=== PATIENT | male | born 1955 | race Caucasian/White ===

== ENCOUNTER 2019-11-22 11:38 | Emergency (ER) | payer MEDICARE, MEDICAID, SELFPAY ==
[2019-11-22] VITALS (8 sets, daily range): BP systolic 124–135; BP diastolic 60–75; PULSE 79–111; RESP 18–25; TEMP 36.9–38.4; O2SAT 95–98; BMI 28.5
--- NOTE | 2019-11-22 11:59 | XR_ITS ---
EXAMINATION: XR CHEST CLINICAL INFORMATION: Cough COMPARISON: None TECHNIQUE: Frontal view of the chest was obtained. FINDINGS: The cardiac and mediastinal contours are normal. The lung volumes are low. There is atelectasis or small infiltrate at the left lung base. The right lung is clear. There is no pleural effusion or pneumothorax. There may be trauma to the left anterior fifth rib, probably old. Bony structures are otherwise unremarkable. IMPRESSION: Low lung volumes. Atelectasis or small infiltrate at the left lung base.
[2019-11-22 12:09] LABS: MANUAL DIFF FLAG NO
[2019-11-22 12:11] LABS: Basophils Percent Auto 0.2 % (0-2); Eosinophils Absolute Auto 0.2 X10*3/uL (0.0-0.4); Eosinophils Percent Auto 1.2 % (0-4); Hematocrit 29.7 % (42-52); Hemoglobin 9.6 g/dl (14.0-18.0); Imm Gran Abs Auto 0.05 X10*3/uL (0.00-0.03); Imm Gran Pct Auto 0.4 % (0.0-0.4); Lymphocytes Percent Auto 15.1 % (20-40); Mean Corpuscular HGB Conc 32.3 g/dl (31.0-36.0); Mean Corpuscular Hemoglobin 27.5 pg (27.0-33.0); Mean Corpuscular Volume 85.1 fL (80-98); Mean Platelet Volume 10.8 fL (9.4-12.4); Monocytes Absolute Auto 0.8 X10*3/uL (0.1-1.2); Monocytes Percent Auto 5.9 % (2-11); Neutrophils Absolute Auto 10.1 X10*3/uL (2.0-8.3); Neutrophils Percent Auto 77.2 % (45-73); Platelet Count 187 X10*3/uL (160-400); Red Blood Count 3.49 X10*6/uL (4.60-5.80); Red Cell Distribution Width 14.8 % (11.0-16.0); White Blood Count 13.1 X10*3/uL (4.8-10.8)
[2019-11-22] MEDS: 0.9 % Sodium Chloride 3,000 ML 3000 ML IVCONT (12:13)
[2019-11-22] MEDS: cefTRIAXone sodium 1 GM in 0.9 % Sodium Chloride 100 ML IV (12:13)
[2019-11-22] MEDS: Ibuprofen 600 MG TABLET PO (12:16)
[2019-11-22 12:23] LABS: INTERNATIONAL NORM RATIO 1.2 (0.9-1.1); Prothrombin Time 14.8 SEC (10.8-13.0)
[2019-11-22 12:25] LABS: Partial Thromboplastin Time 35.8 SEC (24.1-38.0)
--- NOTE | 2019-11-22 12:41 | ED.URI ---
HPI - URI/Sore Throat General Chief Complaint: Fever Stated Complaint: FEVER X 2DAYS Time Seen by Provider: 11/22/19 11:56 Source: patient and family Mode of arrival: wheelchair Limitations: altered mental status ( mild confusion, delirium) History of Present Illness HPI Narrative: patient's history of COVID pneumonia in 07/03 with severe back pain and myopathy and neuropathy unable to ambulate for last 4 months had Tavarez catheter placed last week for urinary retention which he had before also been congested and coughing for last 4 5 days and since yesterday noticed fever temperature increased to 101.4 prior to arrival. Patient denies any abdominal pain no nausea no vomiting MD elicited complaint: fever and cough Pertinent past history: pneumonia Onset (ago): day(s) (2) Severity: moderate Description of mucous: yellow (pt swallows) Exacerbating factors: nothing Relieving factors: nothing Associated symptoms: fever and cough Treatments prior to arrival: acetaminophen Related Data Home Medications Medication Instructions Recorded Confirmed cetirizine [Zyrtec] 10 mg PO DAILY 11/22/19 11/22/19 cholecalciferol (vitamin D3) 50 mcg PO DAILY 11/22/19 11/22/19 [Vitamin D3] clomipramine 50 mg PO DAILY 11/22/19 11/22/19 clomipramine 100 mg PO BEDTIME 11/22/19 11/22/19 dicyclomine 10 mg PO BID 11/22/19 11/22/19 fluvoxamine 200 mg PO QAM 11/22/19 11/22/19 folic acid 1 mg PO DAILY 11/22/19 11/22/19 pantoprazole 40 mg PO DAILY 11/22/19 11/22/19 risperidone 1 mg PO DAILY 11/22/19 11/22/19 risperidone 2 mg PO BEDTIME 11/22/19 11/22/19 Previous Rx's Medication Instructions Recorded cefpodoxime 200 mg PO BID #20 tab 11/22/19 Allergies Allergy/AdvReac Type Severity Reaction Status Date / Time doxycycline Allergy Intermediate rebecca Verified 11/22/19 12:34 morphine Allergy Intermediate Hives Verified 11/22/19 12:34 Latex, Natural Rubber Allergy Mild Rash Verified 11/22/19 12:34 Review of Systems Review of Systems: REVIEW OF SYSTEMS: Pertinent positives and negatives are stated above in the history. GEN: no fevers, chills, fatigue HEENT: no nasal congestion, sore throat, ear pain NEURO: no headache, dizziness, focal weakness PULM: no shortness of breath CV: no chest pain, palpitations, LE edema ABD: no abdominal pain, nausea, vomiting, diarrhea : no dysuria, urgency, frequency SKIN: no rash ROS otherwise negative x 10 PMFSH Past Medical History Medical History HTN (hypertension) OCD (obsessive compulsive disorder) Social History Social History Smoked in Last 30 Days: No Use of substances other than those prescribed or required for medical reasons: No Advance Directives: No Advance Directives Information Provided: Yes Physical Exam Vital Signs and I&O and Narrative: Vital Signs and I&O: Vital Signs Temp 99.2 F 11/22/19 14:35 Pulse 79 11/22/19 14:15 Resp 20 11/22/19 13:59 BP 128/60 11/22/19 14:15 Pulse Ox 95 11/22/19 14:15 Intake & Output 11/21/19 11/22/19 11/22/19 18:59 06:59 18:59 Intake Total 3200 / 3200 Balance 3200 / 3200 Weight 95.254 kg Intake: Intake, IV Amoun t 3200 / 3200 Potassium Chlo ride/H20 10 meq 100 / 100 In 100 ml @ 10 0 mls/hr IV ONCE ONE Rx#:[id number] cefTRIAXone so dium 1 gm In 0.9 100 / 100 % Sodium Chlor dennis 100 ml @ 200 mls/hr IV ONCE ONE Rx#: [id number] 0.9 % Sodium C hloride 3,000 ml 3000 / 3000 @ 3000 mls/hr IVCONT .Q1H ONE Rx#:[id number] Body Mass Index 28.5 VITAL SIGNS: Reviewed. GENERAL: Well developed, well nourished, in no acute distress. HEAD: Normocephalic/atraumatic, Posterior oropharynx was without edema, erythema or exudate. EYES: PERRLA, EOMI , no nystagmus/pallor/icterus noted EARS: Ext canals without abnormality, TMs non-bulging and non-erythematous NOSE: Nares patent bilateral OROPHARYNX: no oral lesions noted, posterior pharynx clear and non-erythematous without noted tonsillar enlargement/erythema/exudates NECK: Supple, no adenopathy LUNGS: good air entry bilateral, rales present bilateral basilar area no wheezing or rhonchi VASCULAR: Regular rate and rhythm without noted murmurs, no JVD or lower extremity edema. ABDOMEN: Soft, non-tender, non-distended with bowel sounds. No rigidity. No guarding. No palpable masses or hernias noted MUSCULOSKELETAL: No tenderness, deformities, or effusions noted on gross inspection. EXTREMITIES: No cyanosis, clubbing or edema. SKIN: Inspection of the skin reveals slight erythema at the bony prominence of both feet no open wound NEUROLOGIC: Alert and oriented x 3. no focal weakness diffuse muscular weakness bilateral legs decreased sensation both legs Course Course Course Narrative: patient with UTI and bronchitis received IV Rocephin in the ER does not want to stay in the hospital agreed has a good help at home will discharge him on Vantin. Patient got the COVID testing done in the ER MDM - URI/Sore Throat Lab Data Result diagrams: 11/22/19 12:02 11/22/19 12:02 Labs: Lab Results 11/22/19 11/22/19 11/22/19 Range/Units 12:02 12:02 12:02 WBC 13.1 H (4.8-10.8) X10*3/uL RBC 3.49 L (4.60-5.80) X10*6/uL Hgb 9.6 L (14.0-18.0) g/dl Hct 29.7 L (42-52) % MCV 85.1 (80-98) fL MCH 27.5 (27.0-33.0) pg MCHC 32.3 (31.0-36.0) g/dl RDW 14.8 (11.0-16.0) % Plt Count 187 (160-400) X10*3/uL MPV 10.8 (9.4-12.4) fL Immature Gran % (Auto) 0.4 (0.0-0.4) % Neut % (Auto) 77.2 H (45-73) % Lymph % (Auto) 15.1 L (20-40) % Humphreys % (Auto) 5.9 (2-11) % Eos % (Auto) 1.2 (0-4) % Baso % (Auto) 0.2 (0-2) % Lymph # (Auto) 2.0 (1.2-4.9) X10*3/uL Humphreys # (Auto) 0.8 (0.1-1.2) X10*3/uL Eos # (Auto) 0.2 (0.0-0.4) X10*3/uL Baso # (Auto) 0.0 (0.0-0.2) X10*3/uL Abs Immat Gran (auto) 0.05 H (0.00-0.03) X10*3/uL Absolute Neuts (auto) 10.1 H (2.0-8.3) X10*3/uL Absolute Nucleated RBC 0.000 (0.0-0.012) X10*3/uL Nucleated RBC % (auto) 0.0 (0.0-0.2) /100WBC PT 14.8 H (10.8-13.0) SEC INR 1.2 H (0.9-1.1) APTT 35.8 (24.1-38.0) SEC Sodium 138 (135-145) mmol/L Potassium 3.0 L (3.3-5.1) mmol/l Chloride 101 (96-108) mmol/L Carbon Dioxide 26 (22-29) mmol/L Anion Gap 14 (12-20) BUN 12 (9-16) mg/dL Creatinine 0.99 (0.5-1.4) mg/dL Estim Creat Clear Calc 91.4 Estimated GFR > 60 Random Glucose 130 H (60-115) mg/dL Lactic Acid (0.5-2.0) mmol/L Calcium 8.6 (8.4-10.2) mg/dL Total Bilirubin 0.5 (0.0-1.0) mg/dL Direct Bilirubin 0.2 (0.0-0.5) mg/dL AST 9 (5-37) U/L ALT < 6 (0-40) U/L Alkaline Phosphatase 77 (39-117) U/L Total Protein 6.6 (6.5-8.0) g/dL Albumin 3.8 (3.5-5.0) g/dL Urine Color Urine Appearance Urine pH (5.0-8.0) Ur Specific [place] (1.005-1.025) Urine Protein (NEG-TRACE) MG/DL Urine Glucose (UA) (NEG) MG/DL Urine Ketones (NEG) MG/DL Urine Blood (NEG) Urine Nitrite (NEG) Ur Leukocyte Esterase (NEG) Urine RBC (0) /HPF Urine WBC (0-4) /HPF Ur Squamous Epith Cells /LPF Ur Renal Epithelial Cell /LPF Urine Bacteria /LPF Coronavirus (PCR) 11/22/19 11/22/19 11/22/19 Range/Units 12:02 14:22 15:30 WBC (4.8-10.8) X10*3/uL RBC (4.60-5.80) X10*6/uL Hgb (14.0-18.0) g/dl Hct (42-52) % MCV (80-98) fL MCH (27.0-33.0) pg MCHC (31.0-36.0) g/dl RDW (11.0-16.0) % Plt Count (160-400) X10*3/uL MPV (9.4-12.4) fL Immature Gran % (Auto) (0.0-0.4) % Neut % (Auto) (45-73) % Lymph % (Auto) (20-40) % Humphreys % (Auto) (2-11) % Eos % (Auto) (0-4) % Baso % (Auto) (0-2) % Lymph # (Auto) (1.2-4.9) X10*3/uL Humphreys # (Auto) (0.1-1.2) X10*3/uL Eos # (Auto) (0.0-0.4) X10*3/uL Baso # (Auto) (0.0-0.2) X10*3/uL Abs Immat Gran (auto) (0.00-0.03) X10*3/uL Absolute Neuts (auto) (2.0-8.3) X10*3/uL Absolute Nucleated RBC (0.0-0.012) X10*3/uL Nucleated RBC % (auto) (0.0-0.2) /100WBC PT (10.8-13.0) SEC INR (0.9-1.1) APTT (24.1-38.0) SEC Sodium (135-145) mmol/L Potassium (3.3-5.1) mmol/l Chloride (96-108) mmol/L Carbon Dioxide (22-29) mmol/L Anion Gap (12-20) BUN (9-16) mg/dL Creatinine (0.5-1.4) mg/dL Estim Creat Clear Calc Estimated GFR Random Glucose (60-115) mg/dL Lactic Acid 1.7 (0.5-2.0) mmol/L Calcium (8.4-10.2) mg/dL Total Bilirubin (0.0-1.0) mg/dL Direct Bilirubin (0.0-0.5) mg/dL AST (5-37) U/L ALT (0-40) U/L Alkaline Phosphatase (39-117) U/L Total Protein (6.5-8.0) g/dL Albumin (3.5-5.0) g/dL Urine Color YELLOW Urine Appearance HAZY Urine pH 6.5 (5.0-8.0) Ur Specific [place] <= 1.005 (1.005-1.025) Urine Protein NEG (NEG-TRACE) MG/DL Urine Glucose (UA) NEG (NEG) MG/DL Urine Ketones NEG (NEG) MG/DL Urine Blood 1+ H (NEG) Urine Nitrite NEG (NEG) Ur Leukocyte Esterase 3+ H (NEG) Urine RBC 1-4 (0) /HPF Urine WBC 76-150 H (0-4) /HPF Ur Squamous Epith Cells 1+ /LPF Ur Renal Epithelial Cell 1+ /LPF Urine Bacteria TRACE /LPF Coronavirus (PCR) Cancelled Discharge Plan Discharge Clinical Impression: Bronchitis, Acute UTI (urinary tract infection) Patient Disposition: Home, Self-Care Instructions: Acute Bronchitis (ED), Catheter-associated Urinary Tract Infection (ED) Additional Instructions: take antibiotics as prescribed, report to the ER/ PCP if fever continues or not feeling better. we did COVID testing , result is pending someone will call you with the results you have slightly low potassium have extra banana / orange juice daily Prescriptions: New cefpodoxime 200 mg tablet 200 mg PO BID Qty: 20 RF: 0 No Action fluvoxamine 100 mg Tablet 200 mg PO QAM RF: 0 risperidone 2 mg Tablet 2 mg PO BEDTIME RF: 0 pantoprazole 40 mg Tablet,Delayed Release (Dr/Ec) 40 mg PO DAILY RF: 0 folic acid 1 mg Tablet 1 mg PO DAILY RF: 0 clomipramine 50 mg Capsule 50 mg PO DAILY RF: 0 clomipramine 50 mg Capsule 100 mg PO BEDTIME RF: 0 risperidone 1 mg Tablet 1 mg PO DAILY RF: 0 dicyclomine 10 mg Capsule 10 mg PO BID RF: 0 cholecalciferol (vitamin D3) [Vitamin D3] 50 mcg (2,000 unit) Tablet 50 mcg PO DAILY RF: 0 Zyrtec 10 mg Capsule 10 mg PO DAILY RF: 0 Interventions: ED Discharge Assessment Last Done: 11/22/19 16:37
[2019-11-22 12:43] LABS: Lactic Acid 1.7 mmol/L (0.5-2.0)
[2019-11-22 12:50] LABS: Alanine Aminotransferase < 6 U/L (0-40); Albumin Level 3.8 g/dL (3.5-5.0); Alkaline Phosphatase 77 U/L (39-117); Anion Gap 14 (12-20); Aspartate Amino Transferase 9 U/L (5-37); Bilirubin Direct 0.2 mg/dL (0.0-0.5); Bilirubin Total 0.5 mg/dL (0.0-1.0); Blood Urea Nitrogen 12 mg/dL (9-16); Calcium 8.6 mg/dL (8.4-10.2); Carbon Dioxide 26 mmol/L (22-29); Chloride 101 mmol/L (96-108); Creatinine Clr Calc Pharmacy 91.4; Estimated Glomerular Filt Rate > 60; Glucose Random 130 mg/dL (60-115); Sodium 138 mmol/L (135-145); Total Protein 6.6 g/dL (6.5-8.0)
[2019-11-22 14:35] LABS: Glucose Urine UA NEG (NEG); Leukocyte Esterase Urine 3+ (NEG); Nitrite Urine NEG (NEG); PH 6.5 (5.0-8.0); Specific Gravity - Urine <= 1.005 (1.005-1.025); Urine Blood 1+ (NEG); Urine Ketones NEG (NEG); Urine Protein NEG (NEG-TRACE)
[2019-11-22 14:36] LABS: Appearance Urine HAZY; Color Urine YELLOW
[2019-11-22 14:43] LABS: Bacteria Urine TRACE /LPF; Squamous Epithelial Cell Urine 1+ /LPF
[2019-11-22 14:44] LABS: Renal Epithelial Cells Urine 1+ /LPF
[2019-11-22] MEDS: Potassium Chloride/H20 10 MEQ/100 ML PIGGYBACK 100 MEQ IV (15:28)
[2019-11-22] MEDS: Potassium Bicarbonate/Cit AC 25 MEQ TABLET.EFF PO (15:55)
== END 2019-11-22 17:22 | disposition home or self-care (01) ==
PROVIDERS: Emergency Provider Internal Medicine; PCP Internal Medicine
DX: J20.9 Acute bronchitis, unspecified (principal); Z20.828 Contact with and (suspected) exposure to other viral communicable diseases; T83.518A Infection and inflammatory reaction due to other urinary catheter, initial encounter; R50.9 Fever, unspecified; I10 Essential (primary) hypertension; Z86.19 Personal history of other infectious and parasitic diseases; Z79.899 Other long term (current) drug therapy; Z96.0 Presence of urogenital implants
CPT/HCPCS: 36415; 71045; 80048; 80076; 81001; 83605; 85025; 85610; 85730; 87040; 87086; 87635; 96365; 96367; 99284

== ENCOUNTER 2019-11-23 08:56 | Emergency (ER) | payer MEDICARE, MEDICAID, SELFPAY ==
--- NOTE | 2019-11-23 | CT_ITS ---
EXAMINATION: CT CHEST WITHOUT CONTRAST CLINICAL INFORMATION: Cough, atypical pneumonia. COMPARISON: Chest radiographs 11/22/2019 TECHNIQUE: Multidetector volumetric CT imaging of the chest is performed without intravenous contrast. Axial MIP volume rendering provided. Sagittal and coronal reformatted images were obtained. This CT examination was performed using dose optimization techniques as appropriate, variously including the following: *Automated exposure control *Adjustment of mA and/or kV according to patient size (this includes techniques or standardized protocols for targeted exams where dose is matched to indication/reason for exam; i.e. extremities or head) *Use of iterative reconstruction technique DLP: 533 mGy-cm FINDINGS: LUNGS: There are low lung volumes with bibasilar subsegmental atelectasis and trace bibasilar effusions. There is some accentuated subpleural lines and mild coarsening bronchiolar markings. There is no lobar or segmental airspace consolidation or peripheral groundglass opacities to suggest pneumonia or atypical pneumonia. The central airways are clear. There is no endobronchial lesion. Scattered calcified granulomata versus chronic small vascular calcifications present left upper lobe. Right lung has subpleural nodule lateral right middle lobe under 6 mm, series 5 image 293. There are 2 smaller nodules anterior right upper lobe series 5 image 199 and posterior right upper lobe series 5 image 131, both under 4 mm. Largest nodule on left is diaphragmatic pleural-based anterior lower lobe measuring 0.4 x 0.7 x 0.9 cm (axial series 5/301, coronal 48, sagittal 37). There is a small nodule under 4 mm lateral left upper lobe series 5 image 132, under 5 mm lateral upper lobe series 5 image 196, and under 4 mm posterior left upper lobe series 5 image 184. MEDIASTINUM: No hilar or mediastinal adenopathy. No pericardial effusion. Thoracic aorta normal in caliber. PLEURA: Trace bibasilar effusions. No pleural mass or pleural thickening. AXILLA: No lymphadenopathy. UPPER ABDOMEN: Unremarkable. OSSEOUS STRUCTURES: Unremarkable. IMPRESSION: 1. Low lung volumes with bibasilar subsegmental atelectasis, accentuated lower zone interstitial markings and coarsening bronchiolar markings. Trace bibasilar effusions. 2. No lobar or segmental airspace consolidation or peripheral groundglass opacities to suggest pneumonia or atypical pneumonia. No adenopathy. 3. Bilateral nodules, largest left base 9 x 7 x 4 mm (ave 6.7 mm); largest right under 6 mm. Fleischner guidelines below. Reference: The Fleischner Society recommendations for management of incidentally detected pulmonary nodules in adults age 35 and greater are based on average nodule size and patient risk category. The recommendations do not apply to lung cancer screening, patients with immunosuppression, or patients with known primary cancer. Single solid nodule average size 6-8 mm: Low Risk Patient: CT at 6-12 months; then consider CT at 18-24 months. High Risk Patient: CT at 6-12 months, then CT at 18-24 months. Certain patients at high risk with suspicious nodule morphology, upper lobe location, or both may warrant 12-month follow-up.
[2019-11-23 09:02] VITALS: BP 161/89; BP 174/98; PULSE 102; PULSE 107; RESP 20; TEMP 38.1; O2SAT 94; O2SAT 96; BMI 27.7
--- NOTE | 2019-11-23 09:13 | ED.FEVER ---
HPI - Fever General Chief Complaint: Fever Stated Complaint: flu like symptoms Time Seen by Provider: 11/23/19 09:13 Source: patient and family Mode of arrival: wheelchair Limitations: no limitations History of Present Illness HPI Narrative: patient on ambulatory mostly wheelchair-bound had COVID 18 07/03 since then going downhill feeling weak for last few days been coughing was seen here yesterday chest x-ray was negative in urine showed UTI patient had Tavarez catheter placed last week. Patient was given 1 g of IV Rocephin yesterday patient refused to stay in the hospital and was discharged with cefpodoxime. Last night he was alone at home as his was working was delirious and asking for help today when came home at 06:00 patient complaining of increased weakness and while she was in a different room he tried to get up from the bed and fell without any significant injuries asked her to call embolus as he does not feel good and wants to stay in the hospital now. On arrival patient temperature was 100.6 degrees with heart rate of 107 patient the criteria for sepsis MD elicited complaint: fever and malaise Onset (ago): day(s) (3-4 days) Related Data Home Medications Medication Instructions Recorded Confirmed cetirizine [Zyrtec] 10 mg PO DAILY 11/22/19 11/22/19 cholecalciferol (vitamin D3) 50 mcg PO DAILY 11/22/19 11/22/19 [Vitamin D3] clomipramine 50 mg PO DAILY 11/22/19 11/22/19 clomipramine 100 mg PO BEDTIME 11/22/19 11/22/19 dicyclomine 10 mg PO BID 11/22/19 11/22/19 fluvoxamine 200 mg PO QAM 11/22/19 11/22/19 folic acid 1 mg PO DAILY 11/22/19 11/22/19 pantoprazole 40 mg PO DAILY 11/22/19 11/22/19 risperidone 1 mg PO DAILY 11/22/19 11/22/19 risperidone 2 mg PO BEDTIME 11/22/19 11/22/19 Previous Rx's Medication Instructions Recorded cefpodoxime 200 mg PO BID #20 tab 11/22/19 Allergies Allergy/AdvReac Type Severity Reaction Status Date / Time doxycycline Allergy Intermediate rebecca Verified 11/22/19 12:34 morphine Allergy Intermediate Hives Verified 11/22/19 12:34 Latex, Natural Rubber Allergy Mild Rash Verified 11/22/19 12:34 Review of Systems Review of Systems: REVIEW OF SYSTEMS: Pertinent positives and negatives are stated above in the history. GEN: weakness ++ HEENT: no nasal congestion, sore throat, ear pain NEURO: no headache, dizziness, focal weakness PULM: no cough, shortness of breath CV: no chest pain, palpitations, LE edema ABD: no abdominal pain, nausea, vomiting, diarrhea : no dysuria, urgency, frequency SKIN: no rash ROS otherwise negative x 10 [facility] Past Medical History Medical History HTN (hypertension) OCD (obsessive compulsive disorder) Social History Social History Alcohol intake: former Smoking Status: Former smoker Use of substances other than those prescribed or required for medical reasons: No Advance Directives: No Advance Directives Information Provided: No Physical Exam Vital Signs and I&O and Narrative: Vital Signs and I&O: Vital Signs Temp 99 F 11/23/19 13:57 Pulse 72 11/23/19 13:57 Resp 20 11/23/19 13:57 BP 190/81 H 11/23/19 13:57 Pulse Ox 98 11/23/19 13:57 Intake & Output 11/22/19 11/23/19 11/23/19 18:59 06:59 18:59 Intake Total 1050 / 1050 Balance 1050 / 1050 Weight 98 kg Intake: Intake, IV Amoun t 1050 / 1050 cefTRIAXone so dium 1 gm In 0.9 50 / 50 % Sodium Chlor dennis 50 ml @ 100 mls/hr IV ONCE ONE Rx#: [id number] 0.9 % Sodium C hloride 1,000 ml 1000 / 1000 @ 999 mls/hr I VCONT .Q1H1M DAMON Rx#:[id number] Body Mass Index 27.7 Appearance: Alert. Oriented X3. No acute distress, lethargic Eyes: Pupils equal, round and reactive to light. ENT: Pharynx normal. Neck: Normal inspection. Neck supple. CVS: Normal heart rate and rhythm. Pulses normal. Respiratory: No respiratory distress. Breath sounds normal. Abdomen: Soft and nontender. Skin: Skin warm and dry. Normal skin color. Normal skin turgor. Extremities: No lower extremity edema. No lower extremity edema. Neuro: Oriented X 3. muscular dystrophy/ weakness lower extremity Course Course Course Narrative: patient with ongoing neuropathy chronic weakness was seen here yesterday for cough and weakness with slightly elevated WBC count found out that he had UTI chest x-ray was negative came back as he is feeling weak. Repeat labs showed improvement in WBC count. CT chest was negative for pneumonia respiratory panel negative for COVID or any other respiratory viruses. Case management talk to the patient and the family will arrange for more help at home patient refused to stay or to go to rehab at this time from the hospital patient received IV fluids and IV 1 g Rocephin again in the ER case discussed with patient's agreed for the patient to go home per patient wishes for records from [facility] patient had Klebsiella which is sensitive to Rocephin /cephalosporins MDM - Fever Lab Data Result diagrams: 11/23/19 10:08 11/23/19 10:08 Labs: Lab Results 11/23/19 11/23/19 11/23/19 Range/Units 09:46 09:47 10:08 WBC 11.3 H (4.8-10.8) X10*3/uL RBC 3.51 L (4.60-5.80) X10*6/uL Hgb 9.5 L (14.0-18.0) g/dl Hct 30.2 L (42-52) % MCV 86.0 (80-98) fL MCH 27.1 (27.0-33.0) pg MCHC 31.5 (31.0-36.0) g/dl RDW 14.8 (11.0-16.0) % Plt Count 176 (160-400) X10*3/uL MPV 11.9 (9.4-12.4) fL Immature Gran % (Auto) 0.4 (0.0-0.4) % Neut % (Auto) 82.2 H (45-73) % Lymph % (Auto) 9.8 L (20-40) % [place] % (Auto) 6.4 (2-11) % Eos % (Auto) 1.0 (0-4) % Baso % (Auto) 0.2 (0-2) % Lymph # (Auto) 1.1 L (1.2-4.9) X10*3/uL [place] # (Auto) 0.7 (0.1-1.2) X10*3/uL Eos # (Auto) 0.1 (0.0-0.4) X10*3/uL Baso # (Auto) 0.0 (0.0-0.2) X10*3/uL Abs Immat Gran (auto) 0.05 H (0.00-0.03) X10*3/uL Absolute Neuts (auto) 9.3 H (2.0-8.3) X10*3/uL Absolute Nucleated RBC 0.000 (0.0-0.012) X10*3/uL Nucleated RBC % (auto) 0.0 (0.0-0.2) /100WBC Sodium (135-145) mmol/L Potassium (3.3-5.1) mmol/l Chloride (96-108) mmol/L Carbon Dioxide (22-29) mmol/L Anion Gap (12-20) BUN (9-16) mg/dL Creatinine (0.5-1.4) mg/dL Estim Creat Clear Calc Estimated GFR Random Glucose (60-115) mg/dL Lactic Acid (0.5-2.0) mmol/L Calcium (8.4-10.2) mg/dL Urine Color YELLOW Urine Appearance HAZY Urine pH 7.0 (5.0-8.0) Ur Specific [place] 1.025 (1.005-1.025) Urine Protein NEG (NEG-TRACE) MG/DL Urine Glucose (UA) NEG (NEG) MG/DL Urine Ketones NEG (NEG) MG/DL Urine Blood 2+ H (NEG) Urine Nitrite NEG (NEG) Ur Leukocyte Esterase 1+ H (NEG) Urine RBC 15-29 H (0) /HPF Urine WBC 76-150 H (0-4) /HPF Ur Squamous Epith Cells 1+ /LPF Urine Bacteria NONE /LPF Urine Mucus 1+ /LPF Respiratory Panel Renee See Note Adenovirus (Rapid PCR) Not Detected (Not Detect.) B.pert (TEM-PCR) Not Detected (Not Detect.) B.parapertussis DNA PCR Not Detected (Not Detect.) C. pneumoniae DNA (PCR) Not Detected (Not Detect.) Coronavirus OC43 (PCR) Not Detected (Not Detect.) Coronavirus HKU1 (PCR) Not Detected (Not Detect.) Coronavirus 229E (PCR) Not Detected (Not Detect.) Coronavirus NL63 (PCR) Not Detected (Not Detect.) Human Metapneumovir PCR Not Detected (Not Detect.) Influenza A (RT-PCR) Not Detected (Not Detect.) Influenza B (RT-PCR) Not Detected (Not Detect.) M. pneumoniae (PCR) Not Detected (Not Detect.) Parainfluenza 1 (PCR) Not Detected (Not Detect.) Parainfluenza 2 (PCR) Not Detected (Not Detect.) Parainfluenza 3 (PCR) Not Detected (Not Detect.) Parainfluenza 4 (PCR) Not Detected (Not Detect.) RSV (PCR) Not Detected (Not Detect.) Entero/Rhino (PCR) Not Detected (Not Detect.) SARS-CoV-2 RNA (RT-PCR) Not Detected (Not Detect.) 11/23/19 11/23/19 Range/Units 10:08 10:08 WBC (4.8-10.8) X10*3/uL RBC (4.60-5.80) X10*6/uL Hgb (14.0-18.0) g/dl Hct (42-52) % MCV (80-98) fL MCH (27.0-33.0) pg MCHC (31.0-36.0) g/dl RDW (11.0-16.0) % Plt Count (160-400) X10*3/uL MPV (9.4-12.4) fL Immature Gran % (Auto) (0.0-0.4) % Neut % (Auto) (45-73) % Lymph % (Auto) (20-40) % [place] % (Auto) (2-11) % Eos % (Auto) (0-4) % Baso % (Auto) (0-2) % Lymph # (Auto) (1.2-4.9) X10*3/uL [place] # (Auto) (0.1-1.2) X10*3/uL Eos # (Auto) (0.0-0.4) X10*3/uL Baso # (Auto) (0.0-0.2) X10*3/uL Abs Immat Gran (auto) (0.00-0.03) X10*3/uL Absolute Neuts (auto) (2.0-8.3) X10*3/uL Absolute Nucleated RBC (0.0-0.012) X10*3/uL Nucleated RBC % (auto) (0.0-0.2) /100WBC Sodium 139 (135-145) mmol/L Potassium 3.9 D (3.3-5.1) mmol/l Chloride 104 (96-108) mmol/L Carbon Dioxide 26 (22-29) mmol/L Anion Gap 13 (12-20) BUN 9 (9-16) mg/dL Creatinine 0.89 (0.5-1.4) mg/dL Estim Creat Clear Calc 98.7 Estimated GFR > 60 Random Glucose 116 H (60-115) mg/dL Lactic Acid 1.5 (0.5-2.0) mmol/L Calcium 8.4 (8.4-10.2) mg/dL Urine Color Urine Appearance Urine pH (5.0-8.0) Ur Specific [place] (1.005-1.025) Urine Protein (NEG-TRACE) MG/DL Urine Glucose (UA) (NEG) MG/DL Urine Ketones (NEG) MG/DL Urine Blood (NEG) Urine Nitrite (NEG) Ur Leukocyte Esterase (NEG) Urine RBC (0) /HPF Urine WBC (0-4) /HPF Ur Squamous Epith Cells /LPF Urine Bacteria /LPF Urine Mucus /LPF Respiratory Panel Renee Adenovirus (Rapid PCR) (Not Detect.) B.pert (TEM-PCR) (Not Detect.) B.parapertussis DNA PCR (Not Detect.) C. pneumoniae DNA (PCR) (Not Detect.) Coronavirus OC43 (PCR) (Not Detect.) Coronavirus HKU1 (PCR) (Not Detect.) Coronavirus 229E (PCR) (Not Detect.) Coronavirus NL63 (PCR) (Not Detect.) Human Metapneumovir PCR (Not Detect.) Influenza A (RT-PCR) (Not Detect.) Influenza B (RT-PCR) (Not Detect.) M. pneumoniae (PCR) (Not Detect.) Parainfluenza 1 (PCR) (Not Detect.) Parainfluenza 2 (PCR) (Not Detect.) Parainfluenza 3 (PCR) (Not Detect.) Parainfluenza 4 (PCR) (Not Detect.) RSV (PCR) (Not Detect.) Entero/Rhino (PCR) (Not Detect.) SARS-CoV-2 RNA (RT-PCR) (Not Detect.) Discharge Plan Discharge Clinical Impression: UTI (urinary tract infection) due to urinary indwelling catheter Qualifiers: Indwelling urinary catheter type: indwelling urethral catheter Encounter type: initial encounter Qualified Code(s): T83.511A - Infection and inflammatory reaction due to indwelling urethral catheter, initial encounter Patient Disposition: Home, Self-Care Instructions: Catheter-associated Urinary Tract Infection (ED) Additional Instructions: continue antibiotics as prescribed yesterday and drink plenty of fluids and follow-up with your primary care doctor Prescriptions: No [facility] fluvoxamine 100 mg Tablet 200 mg PO QAM RF: 0 risperidone 2 mg Tablet 2 mg PO BEDTIME RF: 0 pantoprazole 40 mg Tablet,Delayed Release (Dr/Ec) 40 mg PO DAILY RF: 0 folic acid 1 mg Tablet 1 mg PO DAILY RF: 0 clomipramine 50 mg Capsule 50 mg PO DAILY RF: 0 clomipramine 50 mg Capsule 100 mg PO BEDTIME RF: 0 risperidone 1 mg Tablet 1 mg PO DAILY RF: 0 dicyclomine 10 mg Capsule 10 mg PO BID RF: 0 cholecalciferol (vitamin D3) [Vitamin D3] 50 mcg (2,000 unit) Tablet 50 mcg PO DAILY RF: 0 Zyrtec 10 mg Capsule 10 mg PO DAILY RF: 0 cefpodoxime 200 mg tablet 200 mg PO BID Qty: 20 RF: 0
[2019-11-23 09:32] VITALS: BP 183/87
[2019-11-23] MEDS: 0.9 % Sodium Chloride 1,000 ML 999 ML IVCONT (09:50)
[2019-11-23 10:00] VITALS: BP 172/87; RESP 18; TEMP 37.7; O2SAT 96
[2019-11-23 10:32] LABS: Adenovirus PCR Not Detected (Not Detect.); Bordetella parapertussis PCR Not Detected (Not Detect.); Bordetella pertussis PCR Not Detected (Not Detect.); Chlamydia pneumoniae PCR Not Detected (Not Detect.); Coronavirus 229E PCR Not Detected (Not Detect.); Coronavirus HKU1 PCR Not Detected (Not Detect.); Coronavirus NL63 PCR Not Detected (Not Detect.); Coronavirus OC43 PCR Not Detected (Not Detect.); Human metapneumovirus PCR Not Detected (Not Detect.); Influenza A PCR Not Detected (Not Detect.); Influenza B PCR Not Detected (Not Detect.); Mycoplasma pneumoniae PCR Not Detected (Not Detect.); Parainfluenza 1 PCR Not Detected (Not Detect.); Parainfluenza 2 PCR Not Detected (Not Detect.); Parainfluenza 3 PCR Not Detected (Not Detect.); Parainfluenza 4 PCR Not Detected (Not Detect.); RSV PCR Not Detected (Not Detect.); Rhino/Enterovirus PCR Not Detected (Not Detect.); SARS-CoV-2 PCR Not Detected (Not Detect.)
[2019-11-23 10:32] LABS: MANUAL DIFF FLAG NO
[2019-11-23 10:47] LABS: Basophils Percent Auto 0.2 % (0-2); Eosinophils Absolute Auto 0.1 X10*3/uL (0.0-0.4); Hematocrit 30.2 % (42-52); Hemoglobin 9.5 g/dl (14.0-18.0); Imm Gran Abs Auto 0.05 X10*3/uL (0.00-0.03); Imm Gran Pct Auto 0.4 % (0.0-0.4); Lymphocytes Absolute Auto 1.1 X10*3/uL (1.2-4.9); Lymphocytes Percent Auto 9.8 % (20-40); Mean Corpuscular HGB Conc 31.5 g/dl (31.0-36.0); Mean Corpuscular Hemoglobin 27.1 pg (27.0-33.0); Mean Platelet Volume 11.9 fL (9.4-12.4); Monocytes Absolute Auto 0.7 X10*3/uL (0.1-1.2); Monocytes Percent Auto 6.4 % (2-11); Neutrophils Absolute Auto 9.3 X10*3/uL (2.0-8.3); Neutrophils Percent Auto 82.2 % (45-73); Platelet Count 176 X10*3/uL (160-400); Red Blood Count 3.51 X10*6/uL (4.60-5.80); Red Cell Distribution Width 14.8 % (11.0-16.0); White Blood Count 11.3 X10*3/uL (4.8-10.8)
[2019-11-23 10:48] LABS: Glucose Urine UA NEG (NEG); Leukocyte Esterase Urine 1+ (NEG); Nitrite Urine NEG (NEG); Specific Gravity - Urine 1.025 (1.005-1.025); Urine Blood 2+ (NEG); Urine Ketones NEG (NEG); Urine Protein NEG (NEG-TRACE)
[2019-11-23 10:51] LABS: Appearance Urine HAZY; Color Urine YELLOW
[2019-11-23 10:59] LABS: Lactic Acid 1.5 mmol/L (0.5-2.0)
[2019-11-23 11:04] LABS: Mucus Urine 1+ /LPF; Squamous Epithelial Cell Urine 1+ /LPF
[2019-11-23 11:05] LABS: Anion Gap 13 (12-20); Blood Urea Nitrogen 9 mg/dL (9-16); Calcium 8.4 mg/dL (8.4-10.2); Carbon Dioxide 26 mmol/L (22-29); Chloride 104 mmol/L (96-108); Creatinine Clr Calc Pharmacy 98.7; Estimated Glomerular Filt Rate > 60; Glucose Random 116 mg/dL (60-115); Potassium 3.9 mmol/l (3.3-5.1); Sodium 139 mmol/L (135-145)
--- NOTE | 2019-11-23 11:22 | PC.NURSE ---
pt states he is feeling better. will touch base with provider on dispo
[2019-11-23 12:00] VITALS: BP 190/72; PULSE 89; TEMP 37.2; O2SAT 98
[2019-11-23] MEDS: cefTRIAXone sodium 1 GM in 0.9 % Sodium Chloride 50 ML IV (12:50)
--- NOTE | 2019-11-23 13:19 | MHC.CM.ED ---
Received case management consult from Dr. Ayala. Patient was in yesterday due to UTI. Hospital admission was recommended at that time. Patient refused and went home. Patient returned to ER due to weakness. Hopsital admission is again recommended. Patient is refusing. Spoke with patient's sig other, Margie via telephone at [phone]. Patient lives with Margie, is bedbound, has fpc through [facility] and [facility] health aides [facility] He was approved for overnight hours. However, the agency hasn't been able to find any help for Edi because of the pandemic. Patient has been at [facility] about 6 times from November to June. Patient was in [facility] in June and signed out against medical advice. Margie is expressing fatigue with caring for Edi. However, Edi has continued to refuse rehab placement. Margie aware patient is refusing admission today and patient will return home. [facility] booked. [facility] with chart. Patient, Dr Jamie Hanson and Emelina REYES aware. Continue to monitor for d/c needs.
[2019-11-23 13:57] VITALS: BP 190/81; PULSE 72; RESP 20; TEMP 37.2; O2SAT 98
== END 2019-11-23 14:36 | disposition home or self-care (01) ==
PROVIDERS: Emergency Provider Internal Medicine
DX: T83.511A Infection and inflammatory reaction due to indwelling urethral catheter, initial encounter (principal); Y69 Unspecified misadventure during surgical and medical care; Y92.239 Unspecified place in hospital as the place of occurrence of the external cause; Z79.899 Other long term (current) drug therapy
CPT/HCPCS: 36415; 71250; 80048; 81001; 83605; 85025; 87040; 87633; 96361; 96365; 99284

== ENCOUNTER 2019-12-10 15:02 | Outpatient (REF) | payer MEDICARE, MEDICAID, SELFPAY ==
[2019-12-10 15:38] LABS: Ammonia 27 umol/L (13-55)
[2019-12-10 16:32] LABS: Alanine Aminotransferase < 6 U/L (0-40); Albumin Level 4.3 g/dL (3.5-5.0); Alkaline Phosphatase 84 U/L (39-117); Aspartate Amino Transferase 12 U/L (5-37); Bilirubin Direct 0.2 mg/dL (0.0-0.5); Bilirubin Total 0.4 mg/dL (0.0-1.0); Total Protein 7.6 g/dL (6.5-8.0)
[2019-12-10 16:33] LABS: Syphilis Screen Nonreactive (Nonreactive)
[2019-12-10 16:36] LABS: Erythrocyte Sedimentation Rate 66 MM/HR (0-15)
[2019-12-10 16:57] LABS: Vitamin B12 372 pg/mL (200-900)
[2019-12-11 08:37] LABS: Lyme Abs Screen <0.90 index
== END 2019-12-10 15:03 | disposition home or self-care (01) ==
LOC: HO.LAB 15:02
PROVIDERS: Visit Provider Psychiatry & Neurology Neurology
DX: G93.40 Encephalopathy, unspecified (principal)
CPT/HCPCS: 36415; 80076; 82140; 82607; 85652; 86618; 86780